=== PATIENT | male | born 1970 | race African-American/Black ===

== ENCOUNTER 2016-11-30 07:16 | Outpatient (CLI) ==
[2016-11-30 07:33] VITALS: BMI 24.7
== END 2016-11-30 07:17 ==
LOC: AMBL 07:16
PROVIDERS: ATTEND Internal Medicine
DX: R06.9 Unspecified abnormalities of breathing (principal); R00.0 Tachycardia, unspecified; R09.89 Other specified symptoms and signs involving the circulatory and respiratory systems; Z72.89 Other problems related to lifestyle

== ENCOUNTER 2016-11-30 07:24 | Emergency (ER) ==
[2016-11-30 07:33] VITALS: BP 105/66; TEMP 99; BMI 24.7
[2016-11-30] MEDS ORDERED: VANCOMYCIN 1 GM in SODIUM CHLORIDE 250 ML IV STA (07:38)
[2016-11-30] MEDS ORDERED: ROCEPHIN 1 GM in SODIUM CHLORIDE 50 ML IV STA (07:38)
[2016-11-30] MEDS ORDERED: SODIUM CHLORIDE 1,000 ML IV STA (07:38)
[2016-11-30 07:45] LABS: ABG PCO2 21.9 mmHg (35-45); ABG PH 7.364 (7.35-7.45)
[2016-11-30 07:46] LABS: ABG BASE EXCESS -13 (-2.0-2.0); ABG HCO3 12.5 (22.0-26.0); ABG TCO2 13 (22.0-28.0)
[2016-11-30 07:48] LABS: BASOPHILS % (AUTO) 0.3 % (0.0-3.0); HEMATOCRIT 34.6 % (42.0-52.0); HEMOGLOBIN 11.9 g/dl (14.0-18.0); IMMATURE GRANULOCYTE % (AUTO) 0.5 % (0.0-5.0); LYMPHOCYTES # (AUTO) 0.4 K/uL (0.60-3.4); LYMPHOCYTES % (AUTO) 7.3 (10.0-50.0); MEAN CORPUSCULAR HEMOGLOBIN 35.5 pg (27.0-31.0); MEAN CORPUSCULAR HGB CONC 34.4 (31.8-35.4); MEAN CORPUSCULAR VOLUME 103.3 fl (80.0-94.0); MONOCYTES # (AUTO) 0.4 K/uL (0.4-2.0); MONOCYTES % (AUTO) 6.9 (0-10); NEUTROPHILS # (AUTO) 4.9 K/ul (2.0-6.9); PLATELET COUNT 145 10^3/uL (140-440); RED BLOOD COUNT 3.35 10^6/ul (4.70-6.10); WHITE BLOOD COUNT 5.78 K/ul (4.2-10.2)
[2016-11-30] MEDS ORDERED: ZOFRAN 4 MG/2 ML ONE (07:54)
[2016-11-30] MEDS ORDERED: ZOFRAN 4 MG/2 ML IVP STA (07:54)
[2016-11-30] MEDS ORDERED: DECADRON 4 MG/ML SDV IVP STA (07:55)
[2016-11-30] MEDS ORDERED: ROCEPHIN ONE (07:56)
--- NOTE | 2016-11-30 08:07 | DI ---
EXAM: Chest one view, frontal view only. HISTORY: Shortness of air. COMPARISON: 08/07/2016. FINDINGS: The heart size is normal. There is no pulmonary vascular congestion. There is increased opacity in the the right and left paratracheal regions, more so on the right. Calcified granulomat ous changes noted. The lungs are clear. No pleural effusion or pneumothorax is seen. No acute oss eous abnormality is identified. IMPRESSION: 1. Suspect mediastinal lymphadenopathy. 2. No acute cardiopulmonary process.
--- NOTE | 2016-11-30 08:20 | CT ---
EXAM: CT soft tissue neck without contrast HISTORY: Change in respiration. COMPARISON: None TECHNIQUE: Serial axial images of the soft tissues of the neck were performed without contrast. The se were viewed in multiple planes. FINDINGS: Limited evaluation of the intracranial contents are unremarkable. The orbital globes are normal. Retrobulbar structures are unremarkable. There is scattered paranasal sinus mucosal thicke ashlyn, most pronounced in the right maxillary sinus with mild hyperostosis. Mastoid air cells are cl ear. The nasopharynx and oropharynx are clear. There is low attenuation material anterior to the vertebr al bodies in the cervical spine superiorly from C2 through C5 consistent with a retropharyngeal abril a. There is no air fluid level. There is inflammation and ground-glass involving the aryepiglottic folds and involving the epiglottis. The airway is patent but narrowed in the region of inflammatio n, most pronounced on axial image 56. There is inflammatory stranding and ground-glass in the soft tissues of the neck in the region of the vocal cords and the adjacent fat. The epiglottis is thicke cherry. The thyroid is unremarkable. There are mediastinal and hilar lymph nodes identified. The francisco javier gs demonstrate minimal peripheral reticular ground-glass opacities. There is degenerative disease th roughout the cervical spine. IMPRESSION: There is low attenuation in the prevertebral/retropharyngeal soft tissues with surrounding inflammat ory stranding in the fat from C2-C5. There is thickening of the aryepiglottic folds and thickening of the epiglottis with contributes to narrowing of the airway, but this airway does remain patent. Recommend clinical correlation for respiratory failure and evaluation for potential ET tube placemen t. No definitive abscess or site of infection is identified to account for angioedema. There are scattered cervical lymph nodes which are likely reactive. There is paranasal sinus disease most pronounced in the right maxillary sinus with changes of hypero stosis. There is degenerative disease of the cervical spine. Critical results were discussed with Dr. Kennedy at 8:14 a.m. the same day as exam.
[2016-11-30 08:25] LABS: ALANINE AMINOTRANSFERASE 74 U/L (12-78); ALBUMIN 3.5 g/dL (3.4-5.0); ALKALINE PHOSPHATASE 64 U/L (50-136); ANION GAP 33.7; ASPARTATE AMINO TRANSFERASE 145 U/L (15-37); BILIRUBIN,TOTAL 0.95 mg/dL (0.00-1.20); BLOOD UREA NITROGEN 9 mg/dL (7-18); BUN/CREATININE RATIO 9.67; CALCIUM 8.4 mg/dL (8.2-10.2); CARBON DIOXIDE 11 mmol/L (21-32); CHLORIDE 98 mmol/L (98-107); CREATINE KINASE 125 U/L; CREATININE 0.93 mg/dL (0.60-1.10); GLUCOSE 109 mg/dL (70-100); SODIUM 140 mmol/L (136-145); TOTAL PROTEIN 8.5 g/dL (6.4-8.2)
[2016-11-30] MEDS ORDERED: MORPHINE 4 MG/ML SYRINGE IVP STA (08:28)
[2016-11-30 08:29] LABS: CREATINE KINASE MB 0.6 ng/ml (0.0-3.6); POTASSIUM 2.7 mmol/L (3.5-5.1)
[2016-11-30] MEDS ORDERED: POTASSIUM CHLORIDE PREMIX RUN 10 MEQ in PREMIX 100 ML WATER 1 BAG IV STA (08:29)
[2016-11-30] MEDS ORDERED: ANECTINE ONE (08:31)
[2016-11-30] MEDS ORDERED: POTASSIUM CHLORIDE PREMIX RUN 100 ML IV ONE (08:32)
[2016-11-30] MEDS ORDERED: BENADRYL IV STA (08:33)
[2016-11-30] MEDS ORDERED: BENADRYL ONE (08:35)
[2016-11-30] MEDS ORDERED: ZANTAC IVP STA (08:38)
[2016-11-30] MEDS ORDERED: LIDOCAINE JELLY 2% MUCOUSMEMB ONE (08:39)
[2016-11-30] MEDS ORDERED: PEPCID ONE (08:43)
[2016-11-30] MEDS ORDERED: SODIUM CHLORIDE IV STA (08:44)
[2016-11-30] MEDS ORDERED: PEPCID IV STA (08:44)
[2016-11-30] MEDS ORDERED: LIDOCAINE 1 % AMP 5 ML (SUTURES) SUBCUT STA (08:45)
[2016-11-30] MEDS ORDERED: LIDOCAINE 1 % AMP 5 ML (SUTURES) ONE (08:51)
[2016-11-30] MEDS ORDERED: KETALAR MDV ONE (08:52)
[2016-11-30] MEDS ORDERED: EPINEPHRINE 1:10,000 SYRINGE IV STA ×3 (09:20→09:40)
[2016-11-30] MEDS ORDERED: ATROPINE SULFATE PFS IVP STA (09:25)
--- NOTE | 2016-11-30 09:56 | ED.PDOC ---
Procedures - Intubation Indication: Present: Respiratory Insufficiency Time of Intubation: 09:20 (Direct laryngoscopy , severly edematous epiglotis and posterior pharyngeal area. advised Dr to proceed with surgical airway. 100% O2 with ambu assisting pt with his own resp.) Number of Attempts: 3 Suction Used: Yes Glidescope Used: Yes Intubation Complications: Present: Oral-unsuccessful attempt Tube Inserted By: surgical ER Tube Placement Verified by X-ray: Yes Conscious Sedation - Pre-op Assessment Weight: 140 lb Surgical History: LEFT ARM FX REPAIR - Medical History Past Medical History: None, Other Other History: FX LEFT ARM--fx rt ankle - Physical Exam Heart Rate/Rhythm: Regular Rhythm, Tachycardia
--- NOTE | 2016-11-30 10:02 | DI ---
EXAM: Single frontal view of the chest HISTORY: ET tube placement. COMPARISON: Chest x-ray same day FINDINGS: There is an ET tube with the tip noted in the right mainstem bronchus approximately 2.0 cm from the jannie. There is a large left pneumothorax with pleural separation in the inferior aspect of the left chest measuring 9.1 cm. There is new pneumomediastinum and soft tissue gas. There is consolidation in the left lower lobe consistent with atelectasis. There is a new right pneumothorax measuring approximately 0.9 mm in separation. There is a right-sided shift of the mediastinum consi stent with tension pneumothorax. IMPRESSION: 1. New left tension pneumothorax which is large as measured above. 2. Small right pneumothorax and pneumomediastinum and soft tissue gas. 3. Endotracheal tube with the tip in the right main bronchus. Recommend repositioning. Critical results were called and discussed with Dr. Kennedy at 9:55 a.m. same day as exam.
[2016-11-30 11:17] LABS: HIV INTERNAL QC INTERNAL QC VALID; HIV-1 p24 ANTIGEN SCREEN NEGATIVE (NEGATIVE); HIV-1/2 ANTIBODY SCREEN NEGATIVE (NEGATIVE)
[2016-11-30] MEDS ORDERED: KETALAR MDV IVP STA (14:54)
--- NOTE | 2016-12-01 07:29 | ED.PDOC ---
General ED Provider: Dr. YONG AHUMADA Chief Complaint: Shortness of Air Stated Complaint: shortness of breath Time Seen by Physician: 07:26 (arrived by EMS short of air and noisy respiration involving upper air way lungs clear on admission no wheezing) Mode of Arrival: Stretcher Information Source: Patient, EMT Exam Limitations: Clinical condition (pt unable to lay flat for more than a few seconds had to be examined sitting up) Referred to ED by: Other (has not seen a doctor for many years ) Nursing and Triage Documentation Reviewed and Agree: Yes Respiratory Complaint Exam - Shortness of Air Complaint/Exam Onset/Duration: stated that 1 day ago noted throat pain , the pain increased steadily Symptoms Are: Worse (on morning arrival pain became unbearable could not swallow well short of air felt chocked) Timing: Constant Initial Severity: Moderate Current Severity: Severe Character: Reports: Dyspnea at rest, Dyspnea on exertion, Orthopnea Aggravating: Reports: Deep breaths (palpation ,), Recumbent position Alleviating: Reports: None Associated Signs and Symptoms: Reports: Cough Related History: Denies: Similar episode, Allergic reaction, Recent trauma, Obesity History of Healthcare-Acquired Pneumonia: No Pulmonary Embolism Risk Factors: Reports: Smoking Pseudomonas Risk Factors: Reports: None Tuberculosis Risk Factors: Reports: None Home Oxygen Use: No Recent Stress Test: No Recent Echo/LV Function: No Respiratory Distress: Moderate (on arrival but steadily increased had to under go emergent surgical airway due to marked upper air way obstruction) Stridor Present: No (but had noisy respiration all upper air way) Tracheal Deviation: No (on arrival) Subcutaneous Emphysema: No Accessory Muscle Use: No Retractions: Not Present Diminished Breath Sounds: Yes (through out) Prolonged Expiratory Phase: Yes Unable to Speak Full Sentences: Yes (would use short sentences ) Fatigue: Yes (uppon arrival no but at about 9AM was becoming fatigued o2 sat in high 90's) Leg Swelling: No Aron's Sign Present: No Grunting Respirations: No Differential Diagnoses: Airway Obstruction, Foreign body, Pneumothorax, Anaphylaxis, Bronchospasm Quality Indicators for AMI: EKG in 10min. Quality Indicators for Cardiac Chest Pain: EKG in 10min. Quality Indicator For Non-Traumatic Chest Pain/Syncope: EKG Performed Quality Indicators For Pneumonia/CAP: Empiric Antibiotic Rx, Vital signs Related Surgical History: Reports: None Review of Systems - Review Of Systems Constitutional: Reports: Chills, Malaise, Weakness Ears, Nose, Mouth, Throat: Reports: Throat pain, Throat swelling (markedly swollen neck almost blunted angle of the jaw left side ) Respiratory: Reports: Cough, Short of air, Other (noisy respiration not stridor all upper air way) Cardiac: Reports: No symptoms GI: Reports: No symptoms : Reports: No symptoms Musculoskeletal: Reports: No symptoms Skin: Reports: No symptoms Neurological: Reports: Anxiety Endocrine: Reports: No symptoms Hematologic/Lymphatic: Reports: No symptoms All Other Systems: Reviewed and Negative Past Medical History - Past Medical History Previously Healthy: Yes Endocrine: Reports: None Cardiovascular: Reports: None Respiratory: Reports: None Hematological: Reports: None Gastrointestinal: Reports: None Genitourinary: Reports: None Neuro/Psych: Reports: None Musculoskeletal: Reports: None Cancer: Reports: None - Surgical History General Surgical History: Reports: Orthopedic - Family History Family History: Reports: Unknown - Social History Smoking Status: Current some day smoker, Light tobacco smoker Hx Substance Use: No Alcohol Screening: Occasionally Physical Exam - Physical Exam Appearance: Ill-appearing Ill-appearing: Severe Pain Distress: Severe Eyes: HAI, EOMI, Conjunctiva clear ENT: Nose normal (unable to fully open mouth best attempt by pt could expose finding consistent with mallampati score 4 (hard palate ) , marked edema of neck mostly left sided exquisitely tender to palpation) Neck: Supple (findings of the neck consistent with edema described above) Respiratory: Breath sounds diminished (respiration labored but negative retraction , lungs mostly deminished breath sounds otherwise clear ) Cardiovascular: Tachycardia GI/: Soft, Nontender, No masses, Bowel sounds normal, No Organomegaly Musculoskeletal: Normal strength, ROM intact, No edema, No calf tenderness Skin: Warm, Dry, Normal color Neurological: Sensation intact, Motor intact, Reflexes intact, Cranial nerves intact, Alert, Oriented Psychiatric: Affect appropriate, Mood appropriate Interpretation - Radiology Interpretation Radiology Interpretation By: Radiologist Exam Interpreted: CXR (on arrival later chest xray postive for left tension pneumothorax and pneumomediatinum, smaller right oneumo was also present . ), CT Scan (prevertebral /retropharyngealsoft tissue [id number] . THICKENING OF EPIGLOTTIS , NARROWING OF THE AIR WAY ) Exam Interpreted: Other (ENDOTRACHEAL TUBE RIGHT MAIN BRONCHUS) Procedures - Chest Tube/Needle Decompression Indications: Present: Pneumothorax Chest Tube/Needle Decompression Location: Left, 5th intercostal space, Mid axillary Chest Tube/Needle Decompression Procedure: Betadine Prep Tube Sutured to Skin: Yes Post Procedure CXR?: No (PT ) Re-Evaluation - Re-Evaluation Time of Re-Evaluation: 08:55 (anesthesia was unable to secure an endotracheal tube due to upper air way edema . Cricothyrotomy under taken by the vertical 1cm incision the membrane was entred air flow established. pt's pulse ox improved transiently but since only limite sedation with ketamine was used pt was able to resist the operation and the surgical opening was lost and was reattempted after third attempt the number [address] over the bougie .) Status: Worse Vital Signs Stable: No Appearance: Other (pt becoming fatigued) Lungs: Clear (but breath sounds further diminished since arrival) CV: Other (tachycardic) Additional Comments: at 9:19 AM CPR started pt was in PEA Rafati checked B.S. none noted on left - Re-Evaluation Time of Re-Evaluation: 09:20 (cpr in progress left chest no b.s. rafati placed an 18 angiocath in second ICS air leaked out rafati attempted a chest tube on the left side first attmpt air evacuated but the vistal sign did not improve ) Status: Worse (CPR WAS IN PROGRESS AT ALL TIMES . MEDS GIVEN PER [facility] ANALYSIS OF THE MONITOR PER ACLS PROTOCLS .) Vital Signs Stable: No Neuro: Other (CPR STOPED 9:46) Critical Care Note - Critical Care Note Total Time (mins): 76 Course - Course Hematology/Chemistry: 11/30/16 07:44 11/30/16 07:44 Orders, Labs, Meds: Lab Review 11/30/16 11/30/16 11/30/16 07:40 07:44 08:00 WBC 5.78 RBC 3.35 L Hgb 11.9 L Hct 34.6 L MCV 103.3 H MCH 35.5 H MCHC 34.4 RDW Coeff of Dylon 13.3 Plt Count 145 Immature Gran % (Auto) 0.5 Neut % (Auto) 85.0 Lymph % (Auto) 7.3 L [place] % (Auto) 6.9 Eos % (Auto) 0.0 Baso % (Auto) 0.3 Immature Gran # (Auto) 0.0 Neut # 4.9 Lymph # 0.4 L [place] # 0.4 Eos # 0.0 Baso # 0.0 Puncture Site R brach O2 Saturation 100.0 ABG pH 7.364 ABG pCO2 21.9 L ABG pO2 281.0 H ABG HCO3 12.5 L ABG Total CO2 13 L ABG Base Excess -13 L Bhaskar Test + O2 Delivery Device Nrb Oxygen Liter Flow 15.00 Sodium 140 Potassium 2.7 L* Chloride 98 Carbon Dioxide 11 L Anion Gap 33.7 BUN 9 Creatinine 0.93 Estimated GFR (MDRD) 105.00 BUN/Creatinine Ratio 9.67 Glucose 109 H Lactic Acid 118.3 H Calcium 8.4 Total Bilirubin 0.95 AST 145 H ALT Cancelled Alkaline Phosphatase 64 Total Creatine Kinase 125 CK-MB (CK-2) 0.6 CK-MB (CK-2) % 0.17712 Troponin I < 0.0100 Total Protein 8.5 H Albumin 3.5 Globulin 5.0 Albumin/Globulin Ratio 0.70 Plasma/Serum Alcohol 169.0 H HIV 1&2 Antibody Screen Negative HIV P24 Antigen Negative Orders Category Date Time Status ABG DRAW REQUEST Stat CARDIO 11/30/16 07:39 Completed EKG-(ED ONLY) Stat CARDIO 11/30/16 07:37 Completed ED IV/MEDIPORT/POWERPORT .ONCE EMERGENCY 11/30/16 07:37 Active ABG Stat LAB 11/30/16 07:40 Completed BLOOD ALCOHOL Stat LAB 11/30/16 08:00 Completed BLOOD CULTURE Stat LAB 11/30/16 08:00 Results CBC W/ AUTO DIFF Stat LAB 11/30/16 07:44 Completed COMPREHENSIVE METABOLIC PANEL Stat LAB 11/30/16 07:44 Completed CREATINE KINASE Stat LAB 11/30/16 07:44 Completed HIV RAPID TEST [RAPID HIV SCREEN] Stat LAB 11/30/16 07:44 Completed LACTIC ACID Stat LAB 11/30/16 08:00 Completed MISCELLANEOUS SEND OUT Routine LAB 11/30/16 10:00 Received POS BC ID AND TINA Stat LAB 11/30/16 08:05 Results POS BC ID AND TINA Stat LAB 12/01/16 08:05 Received POS BC ID AND TINA Stat LAB 12/01/16 08:05 Received POS BC ID AND TINA Stat LAB 12/01/16 08:05 Received TROPONIN I Stat LAB 11/30/16 07:44 Completed 0.9 % Sodium Chloride [Saline Flush] MEDS 11/30/16 07:37 Discontinued 1 syr IVF PRN PRN Atropine Sulfate Inj [Atropine Sulfate Pfs] MEDS 11/30/16 09:25 Discontinued 0.5 mg IVP ONCE STA Ceftriaxone Sodium [Rocephin] MEDS 11/30/16 07:56 Discontinued 1 gm .ROUTE .STK-MED ONE Ceftriaxone Sodium [Rocephin] 1 gm MEDS 11/30/16 07:38 Discontinued 0.9 % Sodium Chloride [Sodium Chloride] 50 ml IV ONCE Dexamethasone 4 mg/ml Inj [Decadron 4 mg/ml Sdv] MEDS 11/30/16 07:55 Discontinued 8 mg IVP ONCE STA Diphenhydramine Inj [Benadryl] MEDS 11/30/16 08:33 Discontinued 25 mg IV ONCE STA Diphenhydramine Inj [Benadryl] MEDS 11/30/16 08:35 Discontinued 50 mg .ROUTE .STK-MED ONE Epinephrine [Epinephrine 1:10,000 Syringe] MEDS 11/30/16 09:20 Discontinued 1 mg IV ONCE STA Epinephrine [Epinephrine 1:10,000 Syringe] MEDS 11/30/16 09:23 Discontinued 1 mg IV ONCE STA Epinephrine [Epinephrine 1:10,000 Syringe] MEDS 11/30/16 09:40 Discontinued 1 mg IV ONCE STA Famotidine Inj [Pepcid] MEDS 11/30/16 08:43 Discontinued 40 mg .ROUTE .STK-MED ONE Famotidine Inj [Pepcid] 40 mg MEDS 11/30/16 08:44 Discontinued 0.9 % Sodium Chloride [Sodium Chloride] 50 ml IV ONCE Ketamine HCl Inj [Ketalar Mdv] MEDS 11/30/16 08:52 Discontinued 100 mg .ROUTE .STK-MED ONE Ketamine HCl Inj [Ketalar Mdv] MEDS 11/30/16 14:54 Discontinued 75 mg IVP ONCE STA Lidocaine HCl [Lidocaine Jelly 2%] MEDS 11/30/16 08:39 Discontinued 1 applic MUCOUSMEMB .STK-MED ONE Lidocaine HCl/Pf [Lidocaine 1 % Amp 5 ml (Sutures)] MEDS 11/30/16 08:51 Discontinued 5 ml .ROUTE .STK-MED ONE Lidocaine HCl/Pf [Lidocaine 1 % Amp 5 ml (Sutures)] MEDS 11/30/16 08:45 Discontinued 5 ml SUBCUT ONCE STA Morphine Sulfate [Morphine 4 mg/ml Syringe] MEDS 11/30/16 08:28 Discontinued 1 mg IVP ONCE STA Ondansetron HCl/Pf [Zofran 4 mg/2 ml] MEDS 11/30/16 07:54 Discontinued 4 mg .ROUTE .STK-MED ONE Ondansetron HCl/Pf [Zofran 4 mg/2 ml] MEDS 11/30/16 07:54 Discontinued 4 mg IVP ONCE STA Potassium Chloride [Potassium Chloride Premix Run] 10 MEDS 11/30/16 08:29 Discontinued meq Premix 100 ml Water 1 bag IV ONCE Potassium Chloride [Potassium Chloride Premix Run] 100 MEDS 11/30/16 08:32 Discontinued ml IV .STK-MED Ranitidine Inj [Zantac] MEDS 11/30/16 08:38 Discontinued 50 mg IVP ONCE STA Sodium Chloride 0.9% [Sodium Chloride] 1,000 ml MEDS 11/30/16 07:38 Discontinued IV BOLUS Succinylcholine Chloride [Anectine] MEDS 11/30/16 08:31 Discontinued 20 mg .ROUTE .STK-MED ONE Vancomycin HCl [Vancomycin] 1 gm MEDS 11/30/16 07:38 Discontinued 0.9 % Sodium Chloride [Sodium Chloride] 250 ml IV ONCE CHEST, 1V AP ONLY Stat RADS 11/30/16 07:36 Completed CHEST, 1V AP ONLY Stat RADS 11/30/16 09:[address] SOFT TISSUE NECK W/O CONTR Stat RADS 11/30/16 07:35 Completed Medications Discontinued Medications Generic Name Dose Route Start Last Admin Trade Name Freq PRN Reason Stop Dose Admin Atropine Sulfate 0.5 mg 11/30/16 09:25 11/30/16 09:20 Atropine Sulfate Pfs IVP 11/30/16 09:26 0.5 mg ONCE STA Administration Dexamethasone Sodium Phosphate 8 mg 11/30/16 07:55 11/30/16 08:01 Decadron 4 Mg/Ml Sdv IVP 11/30/16 07:56 8 mg ONCE STA Administration Diphenhydramine HCl 25 mg 11/30/16 08:33 11/30/16 08:37 Benadryl IV 11/30/16 08:34 25 mg ONCE STA Administration Epinephrine HCl 1 mg 11/30/16 09:20 11/30/16 09:20 Epinephrine 1:10,000 Syringe IV 11/30/16 09:21 1 mg ONCE STA Administration Epinephrine HCl 1 mg 11/30/16 09:23 11/30/16 09:23 Epinephrine 1:10,000 Syringe IV 11/30/16 09:24 1 mg ONCE STA Administration Epinephrine HCl 1 mg 11/30/16 09:40 11/30/16 09:40 Epinephrine 1:10,000 Syringe IV 11/30/16 09:41 1 mg ONCE STA Administration Sodium Chloride 1,000 mls @ 1,000 mls/hr 11/30/16 07:38 11/30/16 07:43 Sodium Chloride IV 11/30/16 08:37 1,000 mls/hr BOLUS STA Administration Ceftriaxone Sodium 1 gm/ 50 mls @ 75 mls/hr 11/30/16 07:38 11/30/16 08:05 Sodium Chloride IV 11/30/16 08:17 75 mls/hr ONCE STA Administration Vancomycin HCl 1 gm/ Sodium 250 mls @ 250 mls/hr 11/30/16 07:38 11/30/16 11: 28 Chloride IV 11/30/16 08:37 Not Given ONCE STA Potassium Chloride 10 meq/ 100 mls @ 100 mls/hr 11/30/16 08:29 11/30/16 09:30 Sterile Water IV 11/30/16 09:28 100 mls/hr ONCE STA Administration Famotidine 40 mg/ Sodium 54 mls @ 100 mls/hr 11/30/16 08:44 11/30/16 08:51 Chloride IV 11/30/16 09:15 100 mls/hr ONCE STA Administration Ketamine HCl 75 mg 11/30/16 14:54 11/30/16 15:06 Ketalar Mdv IVP 11/30/16 14:55 Not Given ONCE STA Lidocaine HCl 5 ml 11/30/16 08:45 11/30/16 11:25 Lidocaine 1 % Amp 5 Ml (Sutures) SUBCUT 11/30/16 08:46 Not Given ONCE STA Morphine Sulfate 1 mg 11/30/16 08:28 11/30/16 08:37 Morphine 4 Mg/Ml Syringe IVP 11/30/16 08:29 1 mg ONCE STA Administration Ondansetron HCl 4 mg 11/30/16 07:54 11/30/16 07:58 Zofran 4 Mg/2 Ml IVP 11/30/16 07:55 4 mg ONCE STA Administration Ranitidine HCl 50 mg 11/30/16 08:38 11/30/16 11:29 Zantac IVP 11/30/16 08:39 Not Given ONCE STA Sodium Chloride 1 syr 11/30/16 07:37 11/30/16 07:43 Saline Flush IVF 1 syr PRN PRN Administration To flush IV Vital Signs: Temp Pulse Resp BP Pulse Ox 11/30/16 07:24 99 F 151 H 28 H 105/66 94 L Departure - Departure Time of Disposition: 10:00 (SPOKE WITH FAMILY ALONG WITH TOAN) Disposition: Discharge Problem: Hypokalemia, Chest tube in place Respiratory failure Qualifiers: Chronicity: acute Condition: Pt referred to PMD for follow-up: No Allergies/Adverse Reactions: Allergies tramadol Adverse Reaction (Mild, Verified 11/30/16 07:39) nausea Home Medications: Ambulatory Orders 1 [No Reported Medications] 11/30/16
== END 2016-11-30 11:40 | disposition expired ==
LOC: ED 07:24
DX: J96.00 Acute respiratory failure, unspecified whether with hypoxia or hypercapnia (principal); J93.0 Spontaneous tension pneumothorax; E87.6 Hypokalemia; J02.9 Acute pharyngitis, unspecified; R60.0 Localized edema; R00.0 Tachycardia, unspecified; F17.210 Nicotine dependence, cigarettes, uncomplicated
CPT/HCPCS: 36415; 80053; 80307; 82550; 82553; 82803; 83605; 84484; 85025; 87040; 87070; 87186; 92950; 93005; 93010; 96361; 96365; 96367; 96375; 99291